=== PATIENT | female | born 1990 | race Caucasian/White ===

== ENCOUNTER 2023-06-26 13:13 | Inpatient (IN) | payer OTHER ==
[2023-06-26] VITALS (26 sets, daily range): BP systolic 68–216; BP diastolic 19–202; PULSE 65–176; RESP 15–58; TEMP 97.2–97.5; O2SAT 98
[~2023-06-26] VITALS: Ht 167.6 cm; Wt 81.9 kg
[2023-06-26] MEDS: SODIUM CHLORIDE 0.9% 1,000 ML IV ONE ×4 (13:40→18:51)
[2023-06-26 13:56] LABS: HEMATOCRIT. 40.7 % (36.0-48.0); HEMOGLOBIN. 13.7 g/dL (12.0-16.0); MEAN CORPUSCULAR HGB CONC 33.7 g/dL (31.0-37.0); MEAN CORPUSCULAR VOLUME 94.8 fL (81.0-99.0); MEAN PLATELET VOLUME 10.6 fl (7.4-10.4); PLATELET 208 x1000/uL (130-400); RED BLOOD CELL COUNT 4.29 mill/uL (4.2-5.4); RED CELL DISTRIBUTION WIDTH 13.8 % (11.6-14.6); WHITE BLOOD COUNT 15.4 x1000/uL (4.5-11.0)
[2023-06-26 13:57] LABS: CHLORIDE 93 mEq/L (98-107); POTASSIUM 3.2 mEq/L (3.5-5.1); SODIUM 128 mEq/L (136-145)
[2023-06-26 13:58] LABS: CALCIUM 8.5 mg/dL (8.7-10.4); CARBON DIOXIDE 14 mEq/L (21-32)
[2023-06-26 14:00] LABS: HCG SCREEN NEGATIVE
[2023-06-26 14:03] LABS: CREATININE 2.9 mg/dL (0.6-1.0); UREA NITROGEN BLOOD 26 mg/dL (9-23)
[2023-06-26 14:05] LABS: ACETAMINOPHEN < 2 ug/mL (10-30); ALANINE AMINOTRANSFERASE 25 IU/L (10-49); ALBUMIN 3.4 g/dL (3.2-4.8); ASPARTATE AMINOTRANSFERASE 56 IU/L (<34); BILIRUBIN TOTAL 0.7 mg/dL (0.1-1.0); CREATINE KINASE 86 IU/L (34-145); PROTEIN TOTAL 6.4 g/dL (6.0-8.3); TROPONIN I HIGH SENSITIVITY 9 ng/L (3.0-34)
[2023-06-26 14:09] LABS: THYROID STIMULATING HORMONE 1.12 uIU/mL (0.55-4.78)
[2023-06-26 14:12] LABS: AMMONIA < 17 uMol/L (<32)
[2023-06-26 14:17] LABS: LACTIC ACID 11.9 mmol/L (0.4-2.0)
[2023-06-26 14:18] LABS: DIFFERENTIAL COMMENT 1; ETHANOL BLOOD < 10 mg/dL (<10)
[2023-06-26 14:32] LABS: BG BASE EXCESS -10.4 mmol/L (-2.0-2.0); BG CARBOXYHEMOGLOBIN 0.2 % (0.5-1.5); BG DEOXYHEMOGLOBIN 6.5 % (0.0-5.0); BG FRACTION INSPIRED OXYGEN 21; BG HCO3 ACT 12.3 mmol/L (22.0-26.0); BG METHEMOGLOBIN 0.4 % (0.0-1.5); BG OXYGEN SATURATION 93.5 % (92.0-98.5); BG OXYHEMOGLOBIN 92.9 % (94.0-97.0); BG PCO2 21.2 mmHg (35.0-45.0); BG PH 7.383 (7.350-7.450); BG PO2 70.8 mmHg (75.0-100.0); BG SAMPLE SITE RIGHT BRACHIAL; BG TOTAL HEMOGLOBIN 14.1 g/dL (12.0-18.0); BG VENT MODE ROOM AIR
[2023-06-26] MEDS: POTASSIUM CHLORIDE 20MEQ TABLET SR PO ONE (14:42)
[2023-06-26] MEDS: KCL 20MEQ/100ML PREMIX 100 ML IV SCH (14:42)
[2023-06-26 14:47] LABS: PLATELET ESTIMATE NORMAL; TOXIC GRANULATION 1+
[2023-06-26] MEDS ORDERED: LACTATED RINGERS 1,000 ML IV SCH (15:00)
[2023-06-26] MEDS: PIPERACILLIN/TAZO 3.375G/50ML 50 ML IV STA (15:11)
[2023-06-26] MEDS ORDERED: KCL 20MEQ/100ML PREMIX 100 ML IV SCH (16:15)
[2023-06-26] MEDS: LACTATED RINGERS 1,000 ML IV SCH ×2 (16:26→16:28)
[2023-06-26] MEDS: HALOPERIDOL LACTATE 5MG/ML VIAL IM ONE (16:28)
[2023-06-26] MEDS ORDERED: INSULIN REGULAR 100U/100ML PMX 100 ML IV SCH (16:30)
[2023-06-26] MEDS ORDERED: ONDANSETRON HCL 4MG/2ML INJ IV PRN (16:30)
[2023-06-26] MEDS ORDERED: SODIUM PHOSPHATE 15 MMOL in SODIUM CHLORIDE 0.9% 245 ML IV PRN (16:30)
[2023-06-26] MEDS ORDERED: NOREPINEPHRINE 8MG/250ML PMX 250 ML IV PRN (16:30)
[2023-06-26] MEDS ORDERED: POTASSIUM CHLORIDE 40 MEQ in SODIUM CHLORIDE 0.9% 230 ML IV PRN (16:30)
[2023-06-26] MEDS ORDERED: IPRATROPIUM/ALBUTEROL 0.5-3(2.5)MG/3ML NEB HHN PRN (16:30)
[2023-06-26] MEDS ORDERED: INSULIN REGULAR (DRIP) 100 UNITS in SODIUM CHLORIDE 0.9% 99 ML IV SCH (16:30)
[2023-06-26] MEDS ORDERED: CLONIDINE 0.1MG TABLET PO PRN (16:30)
[2023-06-26] MEDS ORDERED: DOCUSATE SODIUM 100MG CAPSULE PO PRN (16:30)
[2023-06-26] MEDS ORDERED: DEXT 5%/0.9% NACL 1,000 ML IV SCH (16:30)
[2023-06-26] MEDS ORDERED: MAGNESIUM/ALUMINUM HYDROXIDE/SIMETHICONE 30ML UDC PO PRN (16:30)
[2023-06-26] MEDS ORDERED: ACETAMINOPHEN 325MG TABLET PO PRN ×2 (16:30)
[2023-06-26] MEDS ORDERED: GUAIFENESIN 200MG/10ML SUGAR FREE UDC PO PRN (16:30)
[2023-06-26] MEDS ORDERED: DEXTROSE 50% WATER 50ML SYRINGE IV PRN (16:30)
[2023-06-26 16:52] LABS: BETA HYDROXYBUTYRATE 0.3 mMol/L (0.0-0.3)
[2023-06-26 16:53] LABS: GLUCOSE 306 mg/dL (70-105)
[2023-06-26] MEDS: SODIUM CHLORIDE 0.9% 1,000 ML IV SCH (17:50)
[2023-06-26] MEDS: BLOOD SUGAR DIAGNOSTIC STRIP TEST SCH (17:51)
[2023-06-26] MEDS: INSULIN REGULAR 100U/100ML PMX 100 ML IV SCH (18:04)
[2023-06-26] MEDS ORDERED: MAGNESIUM 2 G PREMIX 100 ML IV PRN (18:15)
[2023-06-26] MEDS ORDERED: LORAZEPAM 2MG/ML INJ IV NR (18:15)
[2023-06-26] MEDS: VANCOMYCIN 2,000 MG in DEXT 5% WATER 500 ML IV NR (19:06)
[2023-06-26] MEDS ORDERED: SODIUM CHLORIDE 0.9% 500 ML IV NR (19:30)
[2023-06-26] MEDS ORDERED: POTASSIUM CHLORIDE 40 MEQ in SODIUM CHLORIDE 0.9% 230 ML IV ONE (19:30)
[2023-06-26 19:57] LABS: CHLORIDE 102 mEq/L (98-107); POTASSIUM 3.9 mEq/L (3.5-5.1); SODIUM 132 mEq/L (136-145)
[2023-06-26 19:57] LABS: CLARITY URINE TURBID (CLEAR); COLOR URINE YELLOW (YELLOW); GLUCOSE URINE 3+ (NEGATIVE); KETONES URINE NEGATIVE (NEGATIVE); LEUKOCYTE ESTERASE URINE 2+ (NEGATIVE); NITRITE URINE NEGATIVE (NEGATIVE); OCCULT BLOOD URINE 3+ (NEGATIVE); PROTEIN URINE 1+ (NEGATIVE); SPECIFIC GRAVITY URINE 1.021 (1.005-1.030); UROBILINOGEN URINE 0.2 E.U./dL (0.2-1.0)
[2023-06-26 19:58] LABS: CARBON DIOXIDE 13 mEq/L (21-32)
[2023-06-26 19:59] LABS: CALCIUM 7.7 mg/dL (8.7-10.4)
[2023-06-26] MEDS ORDERED: KCL 20MEQ/100ML X 2 FOR TOTAL KCL 40MEQ/200ML IV SCH (20:00)
[2023-06-26 20:03] LABS: CREATININE 2.8 mg/dL (0.6-1.0)
[2023-06-26 20:04] LABS: UREA NITROGEN BLOOD 26 mg/dL (9-23)
[2023-06-26 20:06] LABS: PHOSPHORUS 3.3 mg/dL (2.5-4.9)
[2023-06-26 20:12] LABS: BACTERIA URINE 3+; SQUAMOUS EPITHELIAL CELL URINE 1+ /lpf (RARE/1+)
[2023-06-26 20:14] LABS: WBC URINE 25-50 /hpf (0-2)
[2023-06-26] MEDS ORDERED: NOREPINEPHRINE 32 MG in DEXT 5% WATER 218 ML IV PRN (20:15)
[2023-06-26] MEDS ORDERED: POTASSIUM PHOSPHATE 30 MMOL in SODIUM CHLORIDE 0.9% 490 ML IV NR (20:15)
[2023-06-26 20:18] LABS: GLUCOSE 659 mg/dL (70-105)
[2023-06-26 20:21] LABS: *AMPHETAMINES SCREEN URINE NEGATIVE (NEGATIVE); *BARBITURATES SCREEN URINE NEGATIVE (NEGATIVE); *BENZODIAZEPINES SCREEN URINE NEGATIVE (NEGATIVE); *COCAINE SCREEN URINE NEGATIVE (NEGATIVE); METHADONE URINE SCREEN NEGATIVE (NEGATIVE)
[2023-06-26 20:22] LABS: LACTIC ACID 8.9 mmol/L (0.4-2.0)
[2023-06-26 20:22] LABS: CANNABINOID URINE SCREEN NEGATIVE (NEGATIVE); ECSTASY MDMA SCREEN URINE NEGATIVE (NEGATIVE); OPIATES URINE SCREEN NEGATIVE (NEGATIVE); PHENCYCLIDINE URINE SCREEN NEGATIVE (NEGATIVE)
[2023-06-26] MEDS ORDERED: SODIUM BICARBONATE 150 MEQ in SODIUM CHLORIDE 0.9% 850 ML IV SCH (21:00)
[2023-06-26] MEDS ORDERED: PIPERACILLIN/TAZO 3.375G/50ML 50 ML IV SCH (22:00)
[2023-06-27] MEDS ORDERED: PANTOPRAZOLE SODIUM 40 MG/VIAL IV SCH (09:00)
== END 2023-06-26 20:51 | DRG 720 ==
LOC: ER 14:07 → EDBEDREQTM 16:03 → EDBEDREQ 16:03 → MICUSO 17:09
PROVIDERS: ADMIT Preventive Medicine Clinical Informatics; ATTEND Preventive Medicine Clinical Informatics
PROC: 0BH17EZ Insertion of Endotracheal Airway into Trachea, Via Natural or Artificial Opening (ICD-10-PCS; principal; 2023-06-26)
PROC: 5A1935Z Respiratory Ventilation, Less than 24 Consecutive Hours (ICD-10-PCS; 2023-06-26)
PROC: 5A12012 Performance of Cardiac Output, Single, Manual (ICD-10-PCS; 2023-06-26)
DX: A41.9 Sepsis, unspecified organism (principal); G93.41 Metabolic encephalopathy; N17.9 Acute kidney failure, unspecified; E11.10 Type 2 diabetes mellitus with ketoacidosis without coma; E87.1 Hypo-osmolality and hyponatremia; I10 Essential (primary) hypertension; E87.6 Hypokalemia; E87.4 Mixed disorder of acid-base balance; R09.02 Hypoxemia; Z79.899 Other long term (current) drug therapy; Z79.4 Long term (current) use of insulin
CPT/HCPCS: 36415; 36600; 71045; 80048; 80051; 80053; 80305; 80307; 80320; 80329; 81003; 82010; 82140; 82375; 82550; 82805; 82962; 83036; 83605; 83735; 83880; 83930; 84100; 84145; 84443; 84484; 84703; 85025; 93005; 94002; 99291; J1630; J1815; J2543; J3370; J3480; J3490; J7030; J7040; J7050; J7060; G0480